=== PATIENT | male | born 1990 | race African-American/Black ===

== ENCOUNTER 2017-05-27 02:12 | Emergency (ER) | payer SELFPAY | END 2017-05-27 02:45 | disposition home or self-care (01) | LOC: ERS 02:12 | DX: R11.2 Nausea with vomiting, unspecified (principal); B20 Human immunodeficiency virus [HIV] disease | CPT/HCPCS: 99406 ==

== ENCOUNTER 2017-06-11 23:03 | Emergency (ER) | payer SELFPAY ==
[2017-06-11] MEDS ORDERED: Lidocaine Viscous Sol 2% 15 ml UD Cup ONE (23:58)
[2017-06-11] MEDS ORDERED: Mag-Al 1200 mg/1200 mg/30 ML UDCUP ONE (23:58)
[2017-06-12 00:13] LABS: #Basophils 0.1 thou/uL (0.0-0.2); #Eosinphils 0.1 thou/uL (0.0-0.7); #Lymphocytes 2.4 thou/uL (1.20-3.40); #Monocytes 0.8 thou/uL (0.11-0.59); #Neutrophils 4.9 thou/uL (1.40-6.50); %Basophils 0.6 % (0.0-1.0); %Eosinophils 1.2 % (0.0-10.0); %Lymphocytes 29.2 % (21.0-51.0); %Monocytes 9.5 % (0.0-10.0); %Neutrophils 59.4 % (42.0-75.0); Hemoglobin 12.9 g/dL (14.0-18.0); Mean Corpuscular HGB CONC 32.9 g/dL (32.0-36.0); Mean Corpuscular Hemoglobin 24.7 pg (27.0-31.0); Mean Corpuscular Volume 75.2 fl (80.0-94.0); Mean Platelet Volume 6.4 fL (7.4-10.4); Platelet Count 202 thou/uL (130-400); RBC Distribution Width 12.1 % (11.5-14.5); Red Blood Cell (RBC) Count 5.23 mill/uL (4.70-6.10); White Blood Cell (WBC) Count 8.3 thou/uL (4.8-10.8)
[2017-06-12 00:32] LABS: ALT (SGPT) 621 U/L (8-55); AST (SGOT) 355 U/L (5-34); Albumin 4.1 g/dL (3.5-5.0); Alkaline Phosphatase 92 U/L (40-150); Anion Gap 12 mmol/L (10-20); BUN (Urea Nitrogen) 15 mg/dL (8.9-20.6); Bilirubin, Total 0.7 mg/dL (0.2-1.2); Calc. Creatinine Clearance 0 mL/min (70-130); Carbon Dioxide 30 mmol/L (22-29); Chloride 100 mmol/L (98-107); Estimated GFR-MDRD Greater than 90; Globulin 3.2 g/dL (2.4-3.5); Glucose 85 mg/dL (70-105); Lipase 25 U/L (8-78); Potassium 4.2 mmol/L (3.5-5.1); Protein, Total 7.3 g/dL (6.0-8.3); Sodium 138 mmol/L (136-145)
[2017-06-12 01:23] LABS: INR-International Normal Ratio 1.1; PTT 37.5 SEC (22.9-36.1); Prothrombin Time 14.7 SEC (12.0-14.7)
[2017-06-12] MEDS ORDERED: Morphine 4 MG/ML VIAL ONE (01:41)
[2017-06-12] MEDS ORDERED: Pantoprazole 40 MG VIAL ONE (01:41)
[2017-06-12] MEDS ORDERED: Ondansetron HCl/PF 4 MG/2 ML Vial ONE (01:41)
[2017-06-12 01:43] LABS: HBCM Index 0.15 S/CO (0-0.79); HBSAg Index 0.36 S/CO (0-0.99); Hep A IgM AB Non-Reactive (NonReactive); Hep A IgM S/CO 0.24 S/CO (0-0.79); Hep B Surf Ag Non-Reactive S/CO (NonReactive); Hepatitis B Core IGM Abs Non-Reactive (NonReactive)
[2017-06-12 02:55] LABS: Hep C IgG Ab Reflex HepC Qnt (NonReactive)
[2017-06-12 02:56] LABS: Hep C Index 4.43 S/CO (0-0.79)
--- NOTE | 2017-06-12 08:07 | RAD ---
CHEST 1 VIEW: Date: 06/11/17 HISTORY: Nausea and vomiting. Chest pain and shortness of breath. COMPARISON: None. FINDINGS: Normal cardiac silhouette. Lungs and pleural spaces are clear. No pneumothorax or osseous abnormaliti es. IMPRESSION: No acute cardiopulmonary process. POS: [facility]
--- NOTE | 2017-06-12 08:52 | ULT ---
PRELIMINARY REPORT/[facility]/EMERGENCY AFTER HOURS PROCEDURE: EXAM: US Abdomen Limited, Right Upper Quadrant CLINICAL HISTORY: 26 years old, male; Pain and signs and symptoms; Nausea and vomiting and other: Diarrhea; Abdominal p ain; Other: Diffuse abd pain; Additional info: Dx: Hiv (2017) TECHNIQUE: Real-time ultrasound of the right upper quadrant with image documentation. COMPARISON: No relevant prior studies available. FINDINGS: Liver: Normal echogenicity. No mass. No intrahepatic bile duct dilation. No perihepatic or abdominal ascites Gallbladder: Unremarkable. No gallstones. Common bile duct: No stones. No significant dilitation. 4.2 mm Pancreas: Unremarkable as visualized. Right kidney: Unremarkable. No stones. No solid mass. No hydronephrosis. IMPRESSION: Normal right upper quadrant ultrasound. Thank you for allowing us to participate in the care of your patient. Dictated and Authenticated by: Omar Kidd MD 06/12/2017 12:37 AM Central Time ([place] & [place]) FINAL REPORT GALLBLADDER ULTRASOUND: History Nausea, vomiting, diarrhea. Abdominal pain. COMPARISON: None. TECHNIQUE: Utilizing a multihertz transducer, sonographic imaging of the right upper quadrant was performed in t he longitudinal and transverse plane. FINDINGS: This report is in agreement with the preliminary report by [facility]. No sonographic evidence of cholelith iasis or cholecystitis. POS: [facility]
--- NOTE | 2017-06-12 09:00 | CT ---
PRELIMINARY REPORT/[facility]/EMERGENCY AFTER HOURS PROCEDURE: EXAM: CT Abdomen and Pelvis With Intravenous Contrast CLINICAL HISTORY: 26 years old, male; Pain; Abdominal pain; Localized; Upper; Patient HX: Pt C/O upper abdominal pain, rad to middle chest, intermittent, worse with food, nauea x 1 month, intermittent vomiting. Pt has HX of hiv with cd4 1052 and undetectable viral load TECHNIQUE: Axial computed tomography images of the abdomen and pelvis with intravenous contrast. Coronal reformatted images were created and reviewed. CONTRAST: 96 mL of ISOVUE 370 administered intravenously. COMPARISON: US Gallbladder RUQ 2017-06-12 00:11 FINDINGS: Lower thorax: No acute findings. ABDOMEN: Liver: Unremarkable. No mass. Gallbladder and bile ducts: Unremarkable. No calcified stones. No ductal dilation. Pancreas: Unremarkable. No mass. No ductal dilation. Spleen: Unremarkable. No splenomegaly. Adrenals: Unremarkable. No mass. Kidneys and ureters: Unremarkable. No solid mass. No hydronephrosis. Stomach and bowel: Minimal small bowel thickening Appendix: No findings to suggest acute appendicitis. PELVIS: Bladder: Unremarkable. No mass. Reproductive: Unremarkable as visualized. ABDOMEN and PELVIS: Intraperitoneal space: Unremarkable. No free air. No significant fluid collection. Bones/joints: No acute fracture. No dislocation. Soft tissues: Unremarkable. Vasculature: Unremarkable. No abdominal aortic aneurysm. Lymph nodes: Unremarkable. No enlarged lymph nodes. IMPRESSION: Minimal small bowel wall thickening which could represent enteritis in the appropriate clinical setti ng Thank you for allowing us to participate in the care of your patient. Dictated and Authenticated by: Omar Kidd MD 06/12/2017 2:05 AM Central Time ([place] & [place]) FINAL REPORT EMERGENCY AFTER HOURS CT ABDOMEN AND PELVIS WITH IV CONTRAST: Date: 06/12/17 HISTORY: Upper abdominal pain with pain radiating to middle of chest. Pain is intermittent and worse with eati ng food. Nausea for 1 month. Intermittent vomiting. History of immunodeficiency. COMPARISON: None available. IMPRESSION: No acute findings are seen in the abdomen or pelvis. [facility] does note suggestion of minimal small bowel thickening involving proximal loops of small bowel. This is overall nonspecific and could be related to incomplete distention, but enteritis cannot be entirely excluded. Findings are in agreement with the preliminary report by [facility]. POS: [facility]
== END 2017-06-12 04:10 | disposition home or self-care (01) ==
LOC: ERS 23:03
DX: R10.12 Left upper quadrant pain (principal); R10.13 Epigastric pain; R11.2 Nausea with vomiting, unspecified; B20 Human immunodeficiency virus [HIV] disease; F41.9 Anxiety disorder, unspecified; F17.210 Nicotine dependence, cigarettes, uncomplicated
CPT/HCPCS: 36415; 71045; 74177; 76705; 80053; 80074; 83690; 85025; 85610; 85730; 87522; 96361; 96374; 96375; C9113; J2270; J2405